=== PATIENT | female | born 1985 | race Caucasian/White ===

== ENCOUNTER 2018-04-29 20:20 | Emergency (ER) | payer OTHER ==
[~2018-04-29] VITALS: Ht 154.9 cm; Wt 90.9 kg
[~2018-04-29 20:20] MED LIST: IBUP-2070 PO; NO MEDS
[2018-04-29] MEDS ORDERED: ACETAMINOPHEN 500 MG TABLET PO ONE (21:30)
[2018-04-29 21:37] VITALS: BP 128/69
[2018-04-29] MEDS ORDERED: SULFAMETHOX/TRIMETH DS 800-160 MG/TABLET PO ONE (22:00)
== END 2018-04-29 22:25 | disposition home or self-care (01) ==
LOC: EMS 20:21
DX: N39.0 Urinary tract infection, site not specified (principal)

== ENCOUNTER 2018-09-07 20:49 | Emergency (ER) | payer OTHER ==
[~2018-09-07] VITALS: Ht 154.9 cm; Wt 95.5 kg
[2018-09-07 22:26] VITALS: BP 121/74
[2018-09-07] MEDS ORDERED: ACETAMINOPHEN 500 MG TABLET PO ONE (22:45)
== END 2018-09-07 22:52 | disposition home or self-care (01) ==
LOC: EMS 20:49
DX: H66.93 Otitis media, unspecified, bilateral (principal); H72.92 Unspecified perforation of tympanic membrane, left ear; R03.0 Elevated blood-pressure reading, without diagnosis of hypertension; J02.9 Acute pharyngitis, unspecified

== ENCOUNTER 2024-11-25 20:37 | Emergency (ER) | payer OTHER ==
[~2024-11-25] VITALS: Ht 154.9 cm; Wt 97.3 kg
[2024-11-25 21:05] VITALS: BP 112/86; PULSE 88; RESP 18; TEMP 97.7; O2SAT 98
== END 2024-11-25 23:43 | disposition left against medical advice (07) ==
LOC: EMS 20:37
DX: M79.603 Pain in arm, unspecified (principal); Z53.21 Procedure and treatment not carried out due to patient leaving prior to being seen by health care provider